=== PATIENT | male | born 1985 | race Caucasian/White ===

== ENCOUNTER 2018-03-03 21:21 | Emergency (ER) | payer OTHER ==
--- NOTE | 2018-03-03 21:30 | PDOC ---
History of Present Illness - General Chief Complaint: Pain, Acute Stated Complaint: RIGHT FLANK PAIN Time Seen by Provider: 03/03/18 21:30 - History of Present Illness Initial Comments: This otherwise healthy 32-year-old man presents with a several year history of intermittent right CVA/right flank pain that worsened today and was accompanied by nausea/vomiting. Patient states over the years, he would have a few hour history of severe pain on the right side that resolved spontaneously. Although his doctors had speculated that he had renal colic, he never had imaging study or diagnosis definitively made. Today, he noted pain in the right flank right lower quadrant worsening and he had onset of nausea with a few episodes of vomiting (no coffee grounds or blood in emesis) no dysuria/urinary frequency/ hematuria noted. No fever or chills. Patient recently moved to this area from [place] and does not have any doctors here yet Past History - Past Medical History Allergies/Adverse Reactions: Allergies Allergy/AdvReac Type Severity Reaction Status Date / Time No Known Allergies Allergy Verified 03/03/18 21:32 Home Medications: Ambulatory Orders Ketorolac Tromethamine [Toradol] 10 mg PO TID PRN #20 tablet 03/03/18 Ondansetron [Zofran Odt -] 4 mg SL BID PRN #10 od.tablet 03/03/18 Oxycodone HCl/Acetaminophen [Percocet 5-325 mg Tablet] 1 tab PO Q6H PRN #12 tablet MDD 3 tabs 03/03/18 COPD: No Other medical history: DENIES Review of Systems - Review of Systems Able to Perform ROS?: Yes Comments:: 12 point review of systems is negative except for what is noted in the history of present illness *Physical Exam - Physical Exam Comments: GENERAL: Adult male, in moderate distress, secondary to right flank pain HEAD: Normal with no signs of trauma. EYES: PERRLA, EOMI, sclera anicteric, conjunctiva clear. ENT: Ears normal, nares patent, oropharynx clear without exudates. Dry mucous membranes. NECK: Normal range of motion, supple without lymphadenopathy, JVD, or masses. LUNGS: Breath sounds equal, clear to auscultation bilaterally. No wheezes, and no crackles. HEART:Regular rate and rhythm, normal S1 and S2 without murmur, rub or gallop. ABDOMEN:.normal bowel sounds; mild tenderness right lower quadrant without guarding or rebound; no masses noted EXTREMITIES: Normal range of motion, no edema. No clubbing or cyanosis. No erythema, or tenderness. NEUROLOGICAL: Cranial nerves II through XII grossly intact. Normal speech. No focal neurological deficits. MUSCULOSKELETAL: Back non-tender to palpation, no CVA tenderness SKIN: Warm, Dry, normal turgor, no rashes or lesions noted. Progress Note - Progress Note Progress Note: Urinalysis shows 0-1 WBCs/0-1 RBCs and 1+ bacteria. Patient had renal stone protocol CT scan to evaluate for hydronephrosis/ hydroureter and stones. CT scan positive for 1.4 cm stone at the right UVJ with accompanying right hydroureter/hydronephrosis. No other stones or other abnormality seen. Meanwhile, patient had a liter of normal saline and Toradol 30 mg IV. After this, the patient was comfortable with no further pain noted. Patient had no nausea/vomiting here in the ER. Results of the CT discussed with the patient. 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 The patient will be discharged with instructions to drink plenty of water. He should use ibuprofen/ acetaminophen as needed for mild pain; Toradol 10 mg up to 3 times a day as needed for moderate pain . Small prescription (#12) of Percocet 5/325 sent to patient's pharmacy to be used for severe pain. If the patient develops severe, intractable pain or nausea/vomiting, prior to being seen by , he should return to the ER *DC/Admit/Observation/Transfer Diagnosis at time of Disposition: Renal colic on right side - Discharge Dispostion Disposition: HOME Condition at time of disposition: Stable - Prescriptions Prescriptions: Ketorolac Tromethamine [Toradol] 10 mg PO TID PRN #20 tablet PRN Reason: Moderate Pain Ondansetron [Zofran Odt -] 4 mg SL BID PRN #10 od.tablet PRN Reason: Nausea Oxycodone HCl/Acetaminophen [Percocet 5-325 mg Tablet] 1 tab PO Q6H PRN #12 tablet MDD 3 tabs PRN Reason: Severe Pain - Referrals Referrals: Vargas Weir MD [Staff Physician] - Call tomorrow - Patient Instructions Printed Discharge Instructions: Kidney Stones -- Adult Additional Instructions: Drink plenty of water Ibuprofen/naproxen/acetaminophen as needed for mild pain Toradol 10 mg up to 3 times a day as needed for moderate pain Percocet 5/325 every 6 hours as needed for severe pain Zofran ODT 4 mg up to twice a day as needed for nausea Follow-up with (urologist) as soon as possible; call office tomorrow Return to ER if you have severe pain/vomiting - Post Discharge Activity
[2018-03-03] MEDS ORDERED: SODIUM CHLORIDE 1,000 ML IV STA (21:33)
[2018-03-03] MEDS ORDERED: ONDANSETRON 4 MG/2 ML VIAL IVPUSH ONE (21:33)
[2018-03-03] MEDS ORDERED: KETOROLAC TROMETHAMINE 30 MG/1 ML VIAL IVPUSH ONE (21:33)
[2018-03-03 21:35] VITALS: BP 141/80; PULSE 40; TEMP 97.3; BMI 28.7
[2018-03-03] MEDS ORDERED: ONDANSETRON 4 MG/2 ML VIAL ONE (21:41)
[2018-03-03] MEDS ORDERED: KETOROLAC TROMETHAMINE 30 MG/1 ML VIAL ONE (21:41)
[2018-03-03 21:45] LABS: URINE APPEARANCE Clear; URINE BILIRUBIN Negative (NEGATIVE); URINE COLOR Yellow; URINE GLUCOSE (UA) Negative (NEGATIVE); URINE KETONE 1+ (NEGATIVE); URINE LEUK ESTERASE Negative (NEGATIVE); URINE NITRITE Negative (NEGATIVE); URINE PROTEIN 1+ (NEGATIVE); URINE UROBILINOGEN 0.2 (0.2-1.0)
[2018-03-03 22:02] LABS: URINE BACTERIA 1+ /hpf (NEGATIVE); URINE RBC 0-2 /hpf (0-3); URINE WBC 0-1 (0-2)
== END 2018-03-03 23:57 | disposition home or self-care (01) ==
LOC: FER 21:21
PROC: 3E0333Z Introduction of Anti-inflammatory into Peripheral Vein, Percutaneous Approach (ICD-10-PCS; principal; 2018-03-03)
PROC: 3E033GC Introduction of Other Therapeutic Substance into Peripheral Vein, Percutaneous Approach (ICD-10-PCS; 2018-03-03)
PROC: 3E0337Z Introduction of Electrolytic and Water Balance Substance into Peripheral Vein, Percutaneous Approach (ICD-10-PCS; 2018-03-03)
DX: N13.2 Hydronephrosis with renal and ureteral calculous obstruction (principal); Z86.73 Personal history of transient ischemic attack (TIA), and cerebral infarction without residual deficits
CPT/HCPCS: 74176; 81003; 81015; 99281-25; J7030